=== PATIENT | male | born 1935 | race Caucasian/White ===

== ENCOUNTER → 2017-05-17 | Day surgery (SDC) | payer MEDICARE, OTHER ==
[~2017-05-17] MED LIST: ADVAIR 250-501 EAC1 INH; ADVAIR 250-501 EACH INH; CLARITIN10 M2 PO; CLARITIN10 M3 PO; CLOPIDOGREL75 MG PO; EPIPEN JR0.15 MG/01 INJ; FINASTERIDE5 M1 PO; FLOMAX0.4 M1 DOB; FLOMAX0.4 M1 PO; LUMIGAN2.5 ML OD; LUMIGAN2.5 ML OU; NEXIUM 24HR22.3 MG PO; NEXIUM PO; PRAVASTATIN SOD10 MG PO; PROSCAR5 MG PO; VITAMIN D35000 UNI1 PO
--- NOTE | ~2017-05-17 | OR ---
Unit #: [id number] #: [id number] Patient: TARUN [place] [id number] [address] [id number] O MR#: [id number] NAME: TARUN [place] ROOM: Date of Procedure: 05/17/2017 Admission Date: 05/17/2017 Surgeon: Daniel Hill M.D. : 1935 Attending Physician: Daniel Hill M.D. Primary Care Physician: Miguel Angel Herrera M.D. OPERATIVE REPORT PREOPERATIVE DIAGNOSIS History of multiple colonic polyps. 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 POSTOPERATIVE DIAGNOSIS History of multiple colonic polyps. 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 PROCEDURES PERFORMED 1. Colonoscopy to cecum. 2. Polypectomy with cold biopsy forceps of 3 to 4 mm polyp, proximal ascending colon. 3. Polypectomy with cold biopsy forceps of 3 to 4 mm polyp at 55 cm with hemoclip placement. ANESTHESIA Monitored anesthesia care. FINDINGS The patient was found to have scattered sigmoid diverticula, mild internal hemorrhoids. No evidence of recurrent polyp at 35 cm. 3 to 4 mm polyp excised from the proximal ascending colon and another from 55 cm. At 55 cm, a hemoclip was placed to ensure good hemostasis. SPECIMENS Sent to Pathology. COMPLICATIONS None apparent. CONDITION The patient tolerated the procedure well. INDICATIONS FOR PROCEDURE The patient is an 81-year-old white male, who 6 months ago had a colonoscopy performed. Multiple colonic polyps were removed. One was removed at 35 cm on a stalk, which had high-grade dysplasia. He presents at this time for repeat endoscopy to make sure there is no evidence of recurrence. DESCRIPTION OF PROCEDURE After obtaining informed consent, the patient was brought to the endoscopy Unit #: [id number] #: [id number] Patient: TARUN [place] suite. After adequate monitored anesthesia care, had the colonoscope placed through the anus and slowly advanced with the lumen always in view. At 35 cm, there was no evidence of recurrent polyp in that area. However we passed slightly farther to ensure we were visually in the proper area. At 55 cm, a 3 to 4 mm polyp was seen, and as a result, it was felt best to proceed with full colonoscopy because of the multiple polyps removed in the past. We passed the scope to the level of the cecum without difficulty with the lumen always in view. The cecum was normal as was the ileocecal valve. Just beyond the cecum, there was a small 3 to 4 mm polyp present on a fold in the proximal ascending colon. It was excised completely with the cold biopsy forceps, and there was good hemostasis. The specimens were sent to Pathology. The remaining portion of the ascending colon, hepatic flexure, transverse colon, splenic flexure, and proximal descending colon were all normal. In the descending colon and sigmoid colon, there were scattered diverticula seen. They were not very numerous in any one area, and they were not very deep. At 55 cm, a small 3 to 4 mm polyp was found. It was excised with the cold biopsy forceps. There was good hemostasis; however, we felt best to place a hemoclip to ensure good hemostasis. This was placed into proper position. Good visualization of the remaining portion of the sigmoid colon was performed. No evidence of recurrent hernia in the area of high-grade dysplasia was present. The rectosigmoid and rectum were all within normal limits. On retroflexing in the rectum to the anorectal junction, the patient was found to have some mild internal hemorrhoids. The scope was removed without difficulty. The patient tolerated the procedure well, went from the endoscopy suite to the recovery area in stable condition. RECOMMENDATIONS High-fiber diet, lots of liquids, tucks or wipes p.r.n., diverticular sheet given, call for pathology on Wednesday. Repeat colonoscopy in 3 years time. Dictated by... Rowdy Dexter/venkata TD: 05/17/2017 11:36 JOB #: [id number] CC: Miguel Angel Herrera M.D. [facility] OPERATIVE REPORT Page 1 of 1 X Daniel Hill MD X PROCEDURE OPERATIVE NOTE
== END | disposition home or self-care (01) ==
LOC: COPS 09:11
DX: D12.2 Benign neoplasm of ascending colon (principal); D12.4 Benign neoplasm of descending colon; K57.30 Diverticulosis of large intestine without perforation or abscess without bleeding; K64.8 Other hemorrhoids; I25.10 Atherosclerotic heart disease of native coronary artery without angina pectoris; J44.9 Chronic obstructive pulmonary disease, unspecified; J45.909 Unspecified asthma, uncomplicated; G47.30 Sleep apnea, unspecified; Z86.010 Personal history of colon polyps; Z91.041 Radiographic dye allergy status; Z91.013 Allergy to seafood; Z88.1 Allergy status to other antibiotic agents; Z91.018 Allergy to other foods; Z88.8 Allergy status to other drugs, medicaments and biological substances; Z79.02 Long term (current) use of antithrombotics/antiplatelets; Z79.51 Long term (current) use of inhaled steroids; Z79.899 Other long term (current) drug therapy; Z95.1 Presence of aortocoronary bypass graft; Z90.49 Acquired absence of other specified parts of digestive tract; Z98.890 Other specified postprocedural states; Z98.1 Arthrodesis status
CPT/HCPCS: 88305